=== PATIENT | male | born 1960 | race Caucasian/White ===

== ENCOUNTER 2021-03-07 14:53 | Observation (INO) ==
[2021-03-07 15:36] LABS: Basophils % 0.3 %; Eosinophils % 0.2 %; Hemoglobin 18.1 g/dL (12.9-16.9); Immature Granulocytes % 0.3 % (0-4); Lymphocytes # 1.7 K/mcL (0.6-4.6); Lymphocytes % 16.9 %; Mean Corpuscular HGB Conc 32.7 g/dL (31.6-35.5); Mean Corpuscular Hemoglobin 27.8 pg (28.0-33.3); Mean Corpuscular Volume 84.9 fL (83.0-100.0); Mean Platelet Volume 9.3 fL (9.4-12.4); Monocytes # 1.1 K/mcL (0.0-1.3); Monocytes % 10.8 %; Neutrophils # 7.3 K/mcL (1.6-8.9); Platelet Count 256 K/mcL (140-400); Red Blood Count 6.51 M/mcL (4.19-5.50); Red Cell Distribution Width 15.1 % (11.5-14.5); Segmented Neutrophils % 71.5 %; White Blood Count 10.2 K/mcL (4.3-11.1)
[2021-03-07 15:47] LABS: Hematocrit 55.3 % (37.5-50.1)
[2021-03-07 15:57] LABS: BUN/Creatinine Ratio 14 (6-26); Blood Urea Nitrogen 16 mg/dL (6-20); Calcium 9.7 mg/dL (8.6-10.3); Carbon Dioxide 27 mEq/L (23-29); Chloride 99 mEq/L (98-107); Glucose 88 mg/dL (70-105); Osmolality,Calculated 281 (280-300); Potassium 3.8 mEq/L (3.5-5.1); Sodium 135 mEq/L (136-145); Troponin I 0.03 ng/mL (< 0.04); eGFR For African Americans > 60 (> 60); eGFR For Non-African Americans > 60 (> 60)
[2021-03-07] MEDS ORDERED: Naloxone 0.4 MG/ML INJ IVP PRN (16:42)
[2021-03-07] MEDS ORDERED: Ondansetron 4 MG/2 ML VIAL IVP PRN (16:42)
[2021-03-07] MEDS ORDERED: Perflutren Lipid Microsphere 1.3 ML in 0.9 % Sodium Chloride 8.7 ML IVP PRN (16:45)
[2021-03-08 04:14] LABS: Basophils % 0.3 %; Eosinophils % 0.5 %; Hematocrit 49.9 % (37.5-50.1); Immature Granulocytes % 0.2 % (0-4); Lymphocytes # 1.8 K/mcL (0.6-4.6); Lymphocytes % 20.7 %; Mean Corpuscular HGB Conc 32.1 g/dL (31.6-35.5); Mean Corpuscular Hemoglobin 27.4 pg (28.0-33.3); Mean Corpuscular Volume 85.3 fL (83.0-100.0); Mean Platelet Volume 9.4 fL (9.4-12.4); Monocytes # 0.8 K/mcL (0.0-1.3); Monocytes % 9.6 %; Neutrophils # 5.9 K/mcL (1.6-8.9); Platelet Count 206 K/mcL (140-400); Red Blood Count 5.85 M/mcL (4.19-5.50); Red Cell Distribution Width 14.6 % (11.5-14.5); Segmented Neutrophils % 68.7 %; White Blood Count 8.7 K/mcL (4.3-11.1)
[2021-03-08 04:29] LABS: Alanine Aminotransferase 24 Units/L (7-52); Albumin 3.7 g/dL (3.5-5.7); Albumin/Globulin Ratio 1.5 (1.1-2.2); Alkaline Phosphatase 53 Units/L (34-104); Aspartate Amino Transferase 18 Units/L (13-39); BUN/Creatinine Ratio 16 (6-26); Bilirubin,Direct 0.1 mg/dL (0.0-0.2); Bilirubin,Indirect 0.4 mg/dL (0.0-1.0); Bilirubin,Total 0.5 mg/dL (0.3-1.0); Blood Urea Nitrogen 19 mg/dL (6-20); Calcium 8.7 mg/dL (8.6-10.3); Carbon Dioxide 26 mEq/L (23-29); Chloride 100 mEq/L (98-107); Chol/HDL Ratio 5.9 (0-4.9); Cholesterol 153 mg/dL (< 200); Globulin 2.4 g/dL (2.4-3.5); Glucose 114 mg/dL (70-105); HDL Cholesterol 26 mg/dL (40-59); LDL Cholesterol,Calculated 80 mg/dL (< 100); Magnesium 1.5 mg/dL (1.6-2.6); Osmolality,Calculated 283 (280-300); Potassium 3.8 mEq/L (3.5-5.1); Sodium 135 mEq/L (136-145); Total Protein 6.1 g/dL (6.4-8.9); Triglycerides 237 mg/dL (< 150); eGFR For African Americans > 60 (> 60); eGFR For Non-African Americans > 60 (> 60)
[2021-03-08 04:31] LABS: Troponin I 0.03 ng/mL (< 0.04)
[2021-03-08 04:44] LABS: Thyroid Stimulating Hormone 2.914 mcIU/mL (0.340-5.600)
[2021-03-08] MEDS ORDERED: Regadenoson 0.4 MG/5 ML SYRINGE IVP ONE (06:14)
[2021-03-08] MEDS: Acetaminophen 325 MG TABLET PO PRN ×2 (08:35→16:33)
[2021-03-08] MEDS ORDERED: (Vilazodone Hcl [Viibryd] 40 MG Tablet) PO SCH (09:00)
[2021-03-08] MEDS: Aspirin Enteric Coated 81 MG Tablet PO SCH (13:01)
[2021-03-08] MEDS: Cyanocobalamin (B-12) 1,000 MCG TABLET PO SCH (13:01)
[2021-03-08] MEDS: Losartan/HCTZ 50-12.5 TABLET PO SCH (13:01)
[2021-03-08] MEDS: Ascorbic Acid 500 MG TABLET PO SCH (13:02)
[2021-03-09 01:11] LABS: Basophils % 0.3 %; Eosinophils % 0.1 %; Hematocrit 48.7 % (37.5-50.1); Hemoglobin 16.2 g/dL (12.9-16.9); Immature Granulocytes % 0.4 % (0-4); Lymphocytes # 1.5 K/mcL (0.6-4.6); Lymphocytes % 19.6 %; Mean Corpuscular HGB Conc 33.3 g/dL (31.6-35.5); Mean Corpuscular Hemoglobin 28.3 pg (28.0-33.3); Mean Corpuscular Volume 85.1 fL (83.0-100.0); Mean Platelet Volume 9.7 fL (9.4-12.4); Monocytes # 0.7 K/mcL (0.0-1.3); Monocytes % 9.4 %; Neutrophils # 5.3 K/mcL (1.6-8.9); Platelet Count 209 K/mcL (140-400); Red Blood Count 5.72 M/mcL (4.19-5.50); Red Cell Distribution Width 14.9 % (11.5-14.5); Segmented Neutrophils % 70.2 %; White Blood Count 7.6 K/mcL (4.3-11.1)
[2021-03-09 01:35] LABS: BUN/Creatinine Ratio 17 (6-26); Blood Urea Nitrogen 19 mg/dL (6-20); Calcium 8.6 mg/dL (8.6-10.3); Carbon Dioxide 27 mEq/L (23-29); Chloride 99 mEq/L (98-107); Glucose 132 mg/dL (70-105); Magnesium 1.8 mg/dL (1.6-2.6); Osmolality,Calculated 282 (280-300); Potassium 3.5 mEq/L (3.5-5.1); Sodium 134 mEq/L (136-145); eGFR For African Americans > 60 (> 60); eGFR For Non-African Americans > 60 (> 60)
[2021-03-09] MEDS: Acetaminophen 325 MG TABLET PO PRN (06:24)
[2021-03-09 07:42] VITALS: BP 118/73
[2021-03-09] MEDS: Losartan/HCTZ 50-12.5 TABLET PO SCH (08:07)
[2021-03-09] MEDS: Aspirin Enteric Coated 81 MG Tablet PO SCH (08:08)
[2021-03-09] MEDS: Cyanocobalamin (B-12) 1,000 MCG TABLET PO SCH (08:08)
[2021-03-09] MEDS: Ascorbic Acid 500 MG TABLET PO SCH (08:10)
[2021-03-11 16:10] LABS: Metanephrine, Plasma 0.16 nmol/L (0.00-0.49)
== END 2021-03-09 10:58 | disposition home or self-care (01) ==
LOC: SUATTDRO → 3NENU 14:53 → EMEROOARM 14:53 → SUATTDRO 17:05 → 3NENU 17:47
PROVIDERS: ADMIT Pharmacist; ATTEND Pharmacist